=== PATIENT | male | born 1995 | race African-American/Black ===

== ENCOUNTER 2020-10-19 08:58 | Emergency (ER) | payer SELFPAY ==
[~2020-10-19] VITALS: Ht 175.3 cm; Wt 82.0 kg
[2020-10-19] MEDS ORDERED: IPRATROPIUM BROMIDE (0.02%) 0.5MG/2.5ML NEB HHN STA (09:24)
[2020-10-19] MEDS ORDERED: ALBUTEROL (0.083%) 2.5MG/3ML NEB HHN STA (09:24)
[2020-10-19 09:25] VITALS: BP 129/63
[2020-10-19] MEDS ORDERED: ALBU6.7H9 INH (09:48)
== END 2020-10-19 10:45 | disposition home or self-care (01) ==
LOC: ER 08:58
DX: J45.901 Unspecified asthma with (acute) exacerbation (principal); F17.290 Nicotine dependence, other tobacco product, uncomplicated
CPT/HCPCS: 94640; 99283; Z7610; 99282

== ENCOUNTER 2023-05-31 18:21 | Emergency (ER) | payer MEDICAID ==
[~2023-05-31] VITALS: Ht 177.8 cm; Wt 87.0 kg
[~2023-05-31 18:21] MED LIST: ALBU6.7H3 INH
[2023-05-31 18:39] VITALS: O2SAT 99
[2023-05-31] MEDS ORDERED: NAPR-681 PO (22:53)
[2023-05-31] MEDS ORDERED: SULF1TAB48 MT (22:53)
[2023-05-31] MEDS ORDERED: CEPH500T MT (22:53)
[2023-05-31 23:23] VITALS: BP 134/75; PULSE 95; RESP 16; TEMP 96.1
== END 2023-05-31 23:25 | disposition home or self-care (01) ==
LOC: ER 18:21
DX: N48.22 Cellulitis of corpus cavernosum and penis (principal); F19.10 Other psychoactive substance abuse, uncomplicated
CPT/HCPCS: 99283

== ENCOUNTER 2023-06-15 13:58 | Emergency (ER) | payer MEDICAID ==
[~2023-06-15] VITALS: Ht 180.3 cm; Wt 90.7 kg
[~2023-06-15 13:58] MED LIST changes: +CEPH500T MT; +NAPR-681 PO; +SULF1TAB48 MT
[2023-06-15 14:14] VITALS: BP 125/59; PULSE 82; RESP 16; TEMP 98; O2SAT 100
== END 2023-06-15 18:17 | disposition left against medical advice (07) ==
LOC: ER 13:58
DX: N48.22 Cellulitis of corpus cavernosum and penis (principal); Z53.21 Procedure and treatment not carried out due to patient leaving prior to being seen by health care provider
CPT/HCPCS: 99281